=== PATIENT | male | born 1980 | race Caucasian/White ===

== ENCOUNTER 2016-12-03 08:28 | Day surgery (SDC) | payer OTHER ==
[~2016-12-03 08:28] MED LIST: AMOXICILLIN250 MG PO; AMOXICILLIN875 MG PO; AUGMENTIN875 MG PO; BACTRIM,SEPT1 TABLET PO; EFFEXOR XR150 MG PO; EFFEXOR75 MG PO; FLEXERIL10 MG PO; FLEXERIL5 MG PO; HYDROCHLOROTHIA25 MG PO; IBUPROFEN800 MG PO; LIDOCAINE20 MG/1 M5 PO; LISINOPRIL10 MG PO; LYRICA150 MG PO; LYRICA200 MG PO; MORPHINE SULFAT15 M1 PO; MOTRIN600 MG PO; MOTRIN800 MG PO; NOHOMEMEDS; NORCO 5/3251 TABLET PO; OMEPRAZOLE20 MG PO; OMEPRAZOLE40 M1 PO; OXYCODONE-ACET1 EACH PO; PERCOCET 5/31 TABLET PO; PROVENTIL HFA6.7 GM IH; TRAMADOL HCL50 MG PO; TYLENOL WITH C1 EACH PO; ULTRAM50 MG PO; VENLAFAXINE225 MG PO
== END 2016-12-03 10:10 | disposition home or self-care (01) ==
LOC: PAIN 08:28 → CATH 08:30 → PAIN 10:10
DX: M51.16 Intervertebral disc disorders with radiculopathy, lumbar region (principal); M79.1 Myalgia; M70.61 Trochanteric bursitis, right hip; J45.909 Unspecified asthma, uncomplicated; I10 Essential (primary) hypertension; K21.9 Gastro-esophageal reflux disease without esophagitis; G47.33 Obstructive sleep apnea (adult) (pediatric); E66.01 Morbid (severe) obesity due to excess calories; Z68.42 Body mass index [BMI] 45.0-49.9, adult; Z79.891 Long term (current) use of opiate analgesic; Z87.891 Personal history of nicotine dependence
CPT/HCPCS: J1030; J2250; J3010

== ENCOUNTER 2017-04-10 08:10 | Day surgery (SDC) | payer OTHER ==
[~2017-04-10] VITALS: Ht 175.3 cm; Wt 152.4 kg
[~2017-04-10 08:10] MED LIST changes: -FLEXERIL5 MG PO; -LISINOPRIL10 MG PO; +LODINE300 MG PO; +WELLBUTRIN XL300 MG PO; +ZESTRIL40 MG PO
== END 2017-04-10 10:14 | disposition home or self-care (01) ==
LOC: PAIN 08:10 → SDC 08:30 → PAIN 08:30
DX: M47.26 Other spondylosis with radiculopathy, lumbar region (principal); M54.5 Low back pain; G89.29 Other chronic pain; M79.1 Myalgia; J45.909 Unspecified asthma, uncomplicated; K21.9 Gastro-esophageal reflux disease without esophagitis; I10 Essential (primary) hypertension; E66.01 Morbid (severe) obesity due to excess calories; Z68.33 Body mass index [BMI] 33.0-33.9, adult; G47.33 Obstructive sleep apnea (adult) (pediatric); R00.0 Tachycardia, unspecified; M70.61 Trochanteric bursitis, right hip; M96.1 Postlaminectomy syndrome, not elsewhere classified; Z87.891 Personal history of nicotine dependence; Z79.891 Long term (current) use of opiate analgesic
CPT/HCPCS: J1030; J2250; J3010; S0020

== ENCOUNTER 2017-04-17 08:03 | Day surgery (SDC) | payer OTHER ==
[~2017-04-17] VITALS: Ht 175.3 cm; Wt 152.4 kg
== END 2017-04-17 09:55 | disposition home or self-care (01) ==
LOC: PAIN 08:03 → SDC 08:30 → PAIN 09:55
DX: M47.26 Other spondylosis with radiculopathy, lumbar region (principal); M96.1 Postlaminectomy syndrome, not elsewhere classified; I10 Essential (primary) hypertension; K21.9 Gastro-esophageal reflux disease without esophagitis; J45.909 Unspecified asthma, uncomplicated; E66.01 Morbid (severe) obesity due to excess calories; Z68.42 Body mass index [BMI] 45.0-49.9, adult; G47.33 Obstructive sleep apnea (adult) (pediatric); R00.0 Tachycardia, unspecified; Z87.891 Personal history of nicotine dependence; Z79.891 Long term (current) use of opiate analgesic
CPT/HCPCS: J1030; J2250; J3010; S0020